=== PATIENT | male | born 1955 | race Caucasian/White ===

== ENCOUNTER 2021-02-26 12:45 | Emergency (ER) | payer BC ==
[2021-02-26] MEDS ORDERED: NA CHLORIDE 0.9% 1,000 ML ONE (13:32)
[2021-02-26] MEDS ORDERED: ASPIRIN 81 MG CHEWABLE TABLET ONE (13:32)
[2021-02-26 13:41] LABS: Protime INR 1.11
[2021-02-26 13:42] LABS: Absolute Lymphocytes (CBC) 2.1 K/uL (0.7-4.9); Basophils % 0.6 % (0-1.3); Hematocrit 50.5 % (39.6-49.0); Lymphocytes % 14.3 % (15.3-44.8); MPV 9.3 fL (7.6-11.3); RBC Red Blood Cell Count 5.14 M/uL (4.33-5.43)
[2021-02-26 13:50] LABS: ALT/SGPT 33 U/L (12-78); AST/SGOT 16 U/L (15-37); Albumin 4.2 g/dL (3.4-5.0); Alkaline Phosphatase 98 U/L (45-117); BUN Blood Urea Nitrogen 12 mg/dL (7-18); Bicarbonate 24 mmol/L (21-32); Bilirubin Direct 0.2 mg/dL (0-0.2); Bilirubin Total 0.8 mg/dL (0.2-1.0); Glucose Level 158 mg/dL (74-106); Lipase 38 U/L (73-393); Magnesium 1.9 mg/dL (1.8-2.4); NT PRO-BNP 42 pg/mL (<125); Protein, Total 7.9 g/dL (6.4-8.2); Sodium Level 142 mmol/L (136-145); Troponin (Emerg Dept Use Only) < 0.02 ng/mL (0.0-0.045)
--- NOTE | 2021-02-26 14:36 | ER ---
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 Now with chest pain, tightness and shaky. Denies HX of cardiac problems. Coronavirus screen: Client denies travel out of the [place] in the last 14 days. nausea, Client presents with at least one sign or symptom that may indicate coronavirus-19. Standard/surgical mask placed on the client. Provider contacted for isolation considerations. Ebola Screen: Patient negative for fever greater than or equal to 101.5 degrees Fahrenheit, and additional compatible Ebola Virus Disease symptoms Patient denies exposure to infectious person. Patient denies travel to an Ebola-affected area in the 21 days before illness onset. No symptoms or risks identified at this time. Initial Sepsis Screen: Does the patient meet any 2 criteria? No. Patient's initial sepsis screen is negative. Does the patient have a suspected source of infection? No. Patient's initial sepsis screen is negative. Risk Assessment: Do you want to hurt yourself or someone else? Patient reports no desire to harm self or others. Onset of symptoms was February 26, 2021. 12:48 Method Of Arrival: Wheelchair ca1 12:48 Acuity: IGOR 3 ca1 Triage Assessment: 12:59 Cardiovascular: Rhythm is sinus rhythm. ca1 Historical: - Allergies: 12:59 No Known Allergies; ca1 - PMHx: 12:59 Hypertension; Gastric Reflux; ca1 - PSHx: 12:59 Hernia repair; ca1 - Immunization history:: Client reports having NOT received the Covid vaccine. Pneumococcal vaccine is not up to date, Flu vaccine is not up to date. - Social history:: Smoking status: Patient/guardian denies using tobacco, the patient reports quitting approximately 30 years ago. - Family history:: not pertinent. Screenin:13 Abuse screen: Denies threats or abuse. Nutritional screening: No deficits noted. jd3 Tuberculosis screening: No symptoms or risk factors identified. Fall Risk Ambulatory Aid- None/Bed Rest/Nurse Assist (0 pts). Gait- Normal/Bed Rest/Wheelchair (0 pts) Mental Status- Oriented to own ability (0 pts). Total Rider Fall Scale indicates No Risk (0-24 pts). Assessment: 13:15 General: Appears in no apparent distress. comfortable, Behavior is cooperative, jd3 appropriate for age, agitated. Pain: Complains of pain in chest Pain does not radiate. Quality of pain is described as aching, pressure, Pain began gradually. Neuro: Level of Consciousness is awake, alert, obeys commands, Oriented to person, place, time, situation. Cardiovascular: Capillary refill < 3 seconds Patient's skin is warm and dry. Rhythm is regular. Respiratory: Airway is patent Respiratory effort is even, unlabored, Respiratory pattern is regular, symmetrical, Denies cough, shortness of breath. GI: No signs and/or symptoms were reported involving the gastrointestinal system. : No signs and/or symptoms were reported regarding the genitourinary system. EENT: No signs and/or symptoms were reported regarding the EENT system. Derm: Skin is intact, Skin is dry, Skin is normal, Skin temperature is warm. Musculoskeletal: Circulation, motion, and sensation intact. Range of motion: intact in all extremities. 14:12 Reassessment: Patient appears in no apparent distress at this time. Patient and/or jd3 family updated on plan of care and expected duration. Pain level reassessed. Patient is alert, oriented x 3, equal unlabored respirations, skin warm/dry/pink. Patient states feeling better. 15:15 Reassessment: Patient appears in no apparent distress at this time. Patient and/or jd3 family updated on plan of care and expected duration. Pain level reassessed. Patient is alert, oriented x 3, equal unlabored respirations, skin warm/dry/pink. Patient denies pain at this time. Patient states feeling better. 16:07 Reassessment: Patient appears in no apparent distress at this time. No changes from jd3 previously documented assessment. Patient and/or family updated on plan of care and expected duration. Pain level reassessed. Patient is alert, oriented x 3, equal unlabored respirations, skin warm/dry/pink. Patient states feeling better. 17:47 Reassessment: Patient appears in no apparent distress at this time. Patient and/or jd3 family updated on plan of care and expected duration. Pain level reassessed. Patient is alert, oriented x 3, equal unlabored respirations, skin warm/dry/pink. pt denies pain. pt decided to he does not want to stay in the hospital. provider at bedside discussing plan of care. even and steady gait upon discharge. denies pain or discomfort at this time. reported understanding of discharge instructions and fallow-up instructions. Patient denies pain at this time. Patient states feeling better. Vital Signs: 12:48 BP 148 / 99; Pulse 80; Resp 16 S; Temp 97.3(TE); Pulse Ox 100% on R/A; Weight 104.33 kg ca1 (R); Height 6 ft. 1 in. (185.42 cm) (R); 14:12 BP 123 / 78; Pulse 84; Resp 15 S; Pulse Ox 96% on R/A; jd3 16:07 BP 129 / 84; Pulse 82; Resp 18 S; Pulse Ox 97% on R/A; jd3 17:49 BP 133 / 82; Pulse 74; Resp 16 S; Pulse Ox 98% on R/A; jd3 12:48 Body Mass Index 30.34 (104.33 kg, 185.42 cm) ca1 NIH Stroke Scale Scores: 14:33 NIHSS Score: 0 carla ED Course: 12:46 Patient arrived in ED. ds1 12:50 Nguyễn iPnto MD is Attending Physician. carla 12:59 Triage completed. ca1 12:59 Arm band placed on right wrist. EKG completed in triage. Results shown to MD. ca1 13:01 Patient placed in an exam room, on a stretcher, on groundwater monitoring technician, on pulse oximetry. ca1 13:08 Norman Bonner, PHUONG is Primary Nurse. jd3 13:09 Inserted saline lock: 20 gauge in right antecubital area, using aseptic technique. jd3 Blood collected. Patient maintains SpO2 saturation greater than 95% on room air. 13:45 XRAY Chest (1 view) In Process Unspecified. EDMS 14:14 Patient has correct armband on for positive identification. Bed in low position. Call jd3 light in reach. Side rails up X2. Child being held by parent. environmental monitoring technician on. Pulse ox on. NIBP on. 14:20 ED physician to see patient. jd3 14:34 Dennis Read MD is Hospitalizing Provider. carla 15:07 CT Chest For PE Angio In Process Unspecified. EDMS 16:35 Troponin (Emerg Dept Use Only) Sent. jd3 17:36 Henok Lorenzana MD is Referral Physician. carla 17:49 No provider procedures requiring assistance completed. IV discontinued, intact, jd3 bleeding controlled, No redness/swelling at site. Pressure dressing applied. Administered Medications: 13:24 Drug: NS 0.9% 1000 ml Route: IV; Rate: 125 ml/hr; Site: right antecubital; jd3 17:51 Follow up: Response: No adverse reaction; IV Status: Order to discontinue infusion; jd3 Order to discontinue infusion, pt singed out AMA 13:24 Drug: Aspirin Chewable Tablet 162 mg Route: PO; jd3 14:20 Follow up: Response: No adverse reaction jd3 14:54 Drug: Lovenox (enoxaparin) 100 mg Route: Sub-Q; Site: abdomen; jd3 15:50 Follow up: Response: No adverse reaction jd3 14:55 Drug: Rocephin (cefTRIAXone) 1 grams Route: IV; Rate: per protocol; Site: right jd3 antecubital; 15:50 Follow up: Response: No adverse reaction; IV Status: Completed infusion jd3 14:55 Drug: Pepcid (famotidine) 20 mg Route: IVP; Site: right antecubital; jd3 15:50 Follow up: Response: No adverse reaction jd3 16:33 Drug: Thiamine 100 mg Route: IV; Rate: bolus; Site: right antecubital; jd3 17:30 Follow up: Response: No adverse reaction; IV Status: Completed infusion jd3 Outcome: 14:35 Decision to Hospitalize by Provider. carla 17:49 AMA AMA form signed jd3 17:49 Condition: stable 17:49 Discharge instructions given to patient, Instructed on discharge instructions, follow up and referral plans. Demonstrated understanding of instructions, follow-up care. 17:49 Patient left the ED. jd3 NIH Stroke Scale - NIH Stroke Score Date: 02/26/2021 Time: 14:33 Total Score = 0 1a. Level of Consciousness (LOC) - 0(Alert) 1b. Level of Consciousness (LOC) (Year \T\ Age) - 0(Both) 1c. LOC Commands (Open \T\ Closes Eyes/Director Gift) - 0(Both) 2. Best Gaze (Lateral Gaze Paresis) - 0(Normal) 3. Visual Field Loss - 0(No visual loss) 4. Facial Palsy - 0(Normal) 5a. Left Arm: Motor (10-second hold) - 0(No drift) 5b. Right Arm: Motor (10-second hold) - 0(No drift) 6a. Left Leg: Motor (5-second hold - always test supine) - 0(No drift) 6b. Right Leg: Motor (5-second hold - always test supine) - 0(No drift) 7. Limb Ataxia (finger/nose \T\ heel/kirkland - test with eyes open) - 0(Absent) 8. Sensory Loss (pinprick arms/legs/face) - 0(Normal) 9. Best Language: Aphasia (description/naming/reading) - 0(No aphasia) 10. Dysarthria (speech clarity - read or repeat words) - 0(Normal) 11. 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 Now with chest pain, tightness and shaky. ca1
--- NOTE | 2021-02-26 14:36 | EDPHYS ---
Physician Documentation [facility] Name: Selwyn Ricks Age: 65 yrs Sex: Male : 1955 Arrival Date: 02/26/2021 Time: 12:46 Bed 2 Private MD: ED Physician Nguyễn Pinto HPI: 02/26 14:30 This 65 yrs old Male presents to ER via Wheelchair with complaints of Chest carla Pain. 14:30 The patient or guardian reports chest pain that is located primarily in the substernal carla area, anterior chest wall, left. Onset: just prior to arrival, this morning. The pain does not radiate. Associated signs and symptoms: Pertinent positives: nausea. The chest pain is described as a pressure. Duration: The patient or guardian reports a single episode, that is now resolved. Modifying factors: The symptoms are alleviated by nothing. the symptoms are aggravated by nothing. Severity of pain: At its worst the pain was mild in the emergency department the pain has resolved. The patient has not experienced similar symptoms in the past. Historical: - Allergies: 12:59 No Known Allergies; ca1 - PMHx: 12:59 Hypertension; Gastric Reflux; ca1 - PSHx: 12:59 Hernia repair; ca1 - Immunization history:: Client reports having NOT received the Covid vaccine. Pneumococcal vaccine is not up to date, Flu vaccine is not up to date. - Social history:: Smoking status: Patient/guardian denies using tobacco, the patient reports quitting approximately 30 years ago. - Family history:: not pertinent. ROS: 14:30 Constitutional: Negative for fever, chills, and weight loss, Eyes: Negative for injury, carla pain, redness, and discharge, ENT: Negative for injury, pain, and discharge, Neck: Negative for injury, pain, and swelling, Respiratory: Negative for shortness of breath, cough, wheezing, and pleuritic chest pain, Back: Negative for injury and pain, : Negative for injury, bleeding, discharge, and swelling, MS/Extremity: Negative for injury and deformity, Skin: Negative for injury, rash, and discoloration, Neuro: Negative for headache, weakness, numbness, tingling, and seizure, Psych: Negative for depression, anxiety, suicide ideation, homicidal ideation, and hallucinations, Allergy/Immunology: Negative for hives, rash, and allergies, Endocrine: Negative for neck swelling, polydipsia, polyuria, polyphagia, and marked weight changes, Hematologic/Lymphatic: Negative for swollen nodes, abnormal bleeding, and unusual bruising. 14:30 Cardiovascular: Positive for chest pain. 14:30 Abdomen/GI: Positive for nausea. 14:30 Neuro: Positive for weakness. Exam: 14:33 Constitutional: This is a well developed, well nourished patient who is awake, alert, carla and in no acute distress. Head/Face: Normocephalic, atraumatic. Eyes: Pupils equal round and reactive to light, extra-ocular motions intact. Lids and lashes normal. Conjunctiva and sclera are non-icteric and not injected. Cornea within normal limits. Periorbital areas with no swelling, redness, or edema. ENT: Nares patent. No nasal discharge, no septal abnormalities noted. Tympanic membranes are normal and external auditory canals are clear. Oropharynx with no redness, swelling, or masses, exudates, or evidence of obstruction, uvula midline. Mucous membranes moist. Neck: Trachea midline, no thyromegaly or masses palpated, and no cervical lymphadenopathy. Supple, full range of motion without nuchal rigidity, or vertebral point tenderness. No Meningismus. Chest/axilla: Normal chest wall appearance and motion. Nontender with no deformity. No lesions are appreciated. Cardiovascular: Regular rate and rhythm with a normal S1 and S2. No gallops, murmurs, or rubs. Normal PMI, no JVD. No pulse deficits. Respiratory: Lungs have equal breath sounds bilaterally, clear to auscultation and percussion. No rales, rhonchi or wheezes noted. No increased work of breathing, no retractions or nasal flaring. Abdomen/GI: Soft, non-tender, with normal bowel sounds. No distension or tympany. No guarding or rebound. No evidence of tenderness throughout. Back: No spinal tenderness. No costovertebral tenderness. Full range of motion. Skin: Warm, dry with normal turgor. Normal color with no rashes, no lesions, and no evidence of cellulitis. MS/ Extremity: Pulses equal, no cyanosis. Neurovascular intact. Full, normal range of motion. Neuro: Awake and alert, GCS 15, oriented to person, place, time, and situation. Cranial nerves II-XII grossly intact. Motor strength 5/5 in all extremities. Sensory grossly intact. Cerebellar exam normal. Normal gait. Psych: Awake, alert, with orientation to person, place and time. Behavior, mood, and affect are within normal limits. 14:33 Musculoskeletal/extremity: DVT Exam: No signs of deep vein thrombosis. no pain, no swelling, no tenderness, negative Homans' sign noted on exam, no appreciated bluish discoloration, no erythema, no increased warmth. 14:40 ECG was reviewed by the Attending Physician. carla Vital Signs: 12:48 BP 148 / 99; Pulse 80; Resp 16 S; Temp 97.3(TE); Pulse Ox 100% on R/A; Weight 104.33 kg ca1 (R); Height 6 ft. 1 in. (185.42 cm) (R); 14:12 BP 123 / 78; Pulse 84; Resp 15 S; Pulse Ox 96% on R/A; jd3 16:07 BP 129 / 84; Pulse 82; Resp 18 S; Pulse Ox 97% on R/A; jd3 17:49 BP 133 / 82; Pulse 74; Resp 16 S; Pulse Ox 98% on R/A; jd3 12:48 Body Mass Index 30.34 (104.33 kg, 185.42 cm) ca1 NIH Stroke Scale Scores: 14:33 NIHSS Score: 0 carla MDM: 12:50 Patient medically screened. carla 14:37 Differential diagnosis: abnormal EKG, acute myocardial infarction, acute pericarditis, carla anxiety, coronary artery disease gastritis, gastroesophageal reflux disease (GERD), hiatal hernia, pancreatitis, pneumonia, pulmonary embolus, stable angina, unstable angina. HEART Score: History: Slightly Suspicious (0), ECG: Normal (0), Age: > 45 and < 65 years (1), Risk Factors: > or = 3 Risk factors for atherosclerotic disease (2), [Hypertension] [+ Family HX] [Obesity] Troponin: < or = 1 x Normal Limit (0), Total Score = 3. The patient was given aspirin in the Emergency Department. The patient's deep vein thrombosis risk score was calculated as follows: Total Score: 0. This patient was found to be at low risk for a deep vein thrombosis by using the Well's assessment criteria. The patient's pulmonary embolism risk score was calculated as follows: Total Score: 0-2 points. This patient was found to be at low risk for a pulmonary embolism by using the Well's assessment criteria. BLANK Risk Score: 1 - Three or more CAD risk factors, [Family Hx], [HTN], [Elevated Cholesterol], TOTAL SCORE = 1. Data reviewed: vital signs, nurses notes, lab test result(s), EKG, radiologic studies, CT scan, plain films. Data interpreted: lunchroom monitor: rate is 84 beats/min, rhythm is regular, Pulse oximetry: on room air is 96 %. Test interpretation: by ED physician or midlevel provider: ECG, plain radiologic studies. Counseling: I had a detailed discussion with the patient and/or guardian regarding: the historical points, exam findings, and any diagnostic results supporting the discharge/admit diagnosis, the presence of at least one elevated blood pressure reading (>120/80) during this emergency department visit, lab results, radiology results, the need for further work-up and treatment in the hospital. 02/26 12:56 Order name: Basic Metabolic Panel [facility] 02/26 12:56 Order name: CBC with Diff [facility] 02/26 12:56 Order name: LFT's [facility] 02/26 12:56 Order name: Magnesium [facility] 02/26 12:56 Order name: NT PRO-BNP; Complete Time: 14: [facility] 02/26 12:56 Order name: PT-INR; Complete Time: 14: [facility] 02/26 12:56 Order name: Troponin (emerg Dept Use Only); Complete Time: 14: [facility] 02/26 12:56 Order name: Lipase; Complete Time: 14: [facility] 02/26 12:57 Order name: Basic Metabolic Panel; Complete Time: 14: [facility] 02/26 12:57 Order name: CBC with Automated Diff; Complete Time: 14: [facility] 02/26 12:57 Order name: Liver (Hepatic) Function; Complete Time: 14: [facility] 02/26 12:57 Order name: Magnesium; Complete Time: 14: [facility] 02/26 14:21 Order name: SARS-COV-2 RT PCR; Complete Time: 16:10 [facility] 02/26 12:56 Order name: XRAY Chest (1 view); Complete Time: 16:[address] [facility] 02/26 12:56 Order name: EKG; Complete Time: 12:[address] [facility] 02/26 12:56 Order name: Cardiac monitoring; Complete Time: 13:[address] [facility] 02/26 12:56 Order name: EKG - Nurse/Tech; Complete Time: 13:[address] [facility] 02/26 14:27 Order name: Blood Culture Adult (2) [facility] 02/26 14:27 Order name: CT Chest For PE Angio; Complete Time: 16:[address] [facility] 02/26 14:28 Order name: Blood Culture [facility] 02/26 15:25 Order name: Urine Dipstick-Ancillary; Complete Time: 16:10 [facility] 02/26 16:21 Order name: Troponin (emerg Dept Use Only): NOW [facility] 02/26 16:21 Order name: Troponin (Emerg Dept Use Only); Complete Time: 17:16 [facility] 02/26 12:56 Order name: IV Saline Lock; Complete Time: 13:[address] [facility] 02/26 12:56 Order name: Labs collected and sent; Complete Time: 13:[address] [facility] 02/26 12:56 Order name: O2 Per Protocol; Complete Time: 13:[address] [facility] 02/26 12:56 Order name: O2 Sat Monitoring; Complete Time: 13:[address] [facility] EC:40 Rate is 78 beats/min. Rhythm is regular. QRS Roosevelt is Normal. ID interval is normal. QRS carla interval is normal. QT interval is normal. No Q waves. T waves are Normal. No ST changes noted. Clinical impression: NSR w/ Non-specific ST/T Changes and No evidence of ischemia. Interpreted by me. Reviewed by me. Administered Medications: 13:24 Drug: NS 0.9% 1000 ml Route: IV; Rate: 125 ml/hr; Site: right antecubital; jd3 17:51 Follow up: Response: No adverse reaction; IV Status: Order to discontinue infusion; jd3 Order to discontinue infusion, pt singed out AMA 13:24 Drug: Aspirin Chewable Tablet 162 mg Route: PO; jd3 14:20 Follow up: Response: No adverse reaction jd3 14:54 Drug: Lovenox (enoxaparin) 100 mg Route: Sub-Q; Site: abdomen; jd3 15:50 Follow up: Response: No adverse reaction jd3 14:55 Drug: Rocephin (cefTRIAXone) 1 grams Route: IV; Rate: per protocol; Site: right jd3 antecubital; 15:50 Follow up: Response: No adverse reaction; IV Status: Completed infusion jd3 14:55 Drug: Pepcid (famotidine) 20 mg Route: IVP; Site: right antecubital; jd3 15:50 Follow up: Response: No adverse reaction jd3 16:33 Drug: Thiamine 100 mg Route: IV; Rate: bolus; Site: right antecubital; jd3 17:30 Follow up: Response: No adverse reaction; IV Status: Completed infusion jd3 Disposition: 02/26/21 17:37 Patient has left against medical advice. Impression: Chest pain, unspecified, Essential (primary) hypertension, Alcohol abuse, uncomplicated, Elevated white blood cell count. - Patients states they are going to Home. - Condition is Fair. - Discharge Instructions: Nonspecific Chest Pain, Alcohol Use Disorder, Hypertension, Nonspecific Chest Pain, [id number], Hypertension, [id number], Alcohol Abuse and Nutrition, How to Take Your Blood Pressure, [id number], Aspirin and Your Heart, Managing Your Hypertension. Follow up: Private Physician; When: Upon discharge from the Emergency Department; Reason: Recheck today's complaints, Continuance of care, Re-evaluation by your physician. Follow up: Henok Lorenzana MD; When: Upon discharge from the Emergency Department; Reason: Recheck today's complaints, Re-evaluation by your physician. - Problem is new. - Symptoms have improved. NIH Stroke Scale - NIH Stroke Score Date: 02/26/2021 Time: 14:33 Total Score = 0 1a. Level of Consciousness (LOC) - 0(Alert) 1b. Level of Consciousness (LOC) (Year \T\ Age) - 0(Both) 1c. LOC Commands (Open \T\ Closes Eyes/Bag Machine Helper) - 0(Both) 2. Best Gaze (Lateral Gaze Paresis) - 0(Normal) 3. Visual Field Loss - 0(No visual loss) 4. Facial Palsy - 0(Normal) 5a. Left Arm: Motor (10-second hold) - 0(No drift) 5b. Right Arm: Motor (10-second hold) - 0(No drift) 6a. Left Leg: Motor (5-second hold - always test supine) - 0(No drift) 6b. Right Leg: Motor (5-second hold - always test supine) - 0(No drift) 7. Limb Ataxia (finger/nose \T\ heel/kirkland - test with eyes open) - 0(Absent) 8. Sensory Loss (pinprick arms/legs/face) - 0(Normal) 9. Best Language: Aphasia (description/naming/reading) - 0(No aphasia) 10. Dysarthria (speech clarity - read or repeat words) - 0(Normal) 11. Extinction and Inattention (visual/tactile/auditory/spatial/personal) - 0(No abnormality) Initials: carla Signatures: Dispatcher [employer] [facility] Nguyễn Pinto MD MD cha Attema, Lee, FINAL CLEANER-C FINAL CLEANER-Cla1 Norman Bonner RN RN jd3 Acob, Shira RN RN ca1 Corrections: (The following items were deleted from the chart) 13:41 12:57 CORONAVIRUS+MR.LAB.BRZ ordered. [facility] 17:36 14:35 Hospitalization Ordered by Dennis Read MD for Observation. Preliminary carla diagnosis is Chest pain, unspecified; Weakness; Nausea; Elevated white blood cell count. Bed requested for Telemetry/MedSurg (observation). Status is Observation. Condition is Stable. Problem is new. Symptoms have improved. carla 17:49 17:37 02/26/2021 17:37 Patients has left against medical advice. Impression: jd3 Chest pain, unspecified; Essential (primary) hypertension; Alcohol abuse, uncomplicated; Elevated white blood cell count. Patient states they are going to Home. Condition is Fair. Follow up: Private Physician; When: Upon discharge from the Emergency Department; Reason: Recheck today's complaints, Continuance of care, Re-evaluation by your physician. Follow up: Henok Lorenzana; When: Upon discharge from the Emergency Department; Reason: Recheck today's complaints, Re-evaluation by your physician. Problem is new. Symptoms have improved. carla
[2021-02-26] MEDS ORDERED: CEFTRIAXONE/SWI 1gm 1 GM/10 ML SYR ONE (15:04)
[2021-02-26] MEDS ORDERED: FAMOTIDINE 20 MG/2 ML VIAL IV ONE (15:04)
[2021-02-26] MEDS ORDERED: ENOXAPARIN 100 MG/ML SYR SQ ONE (15:04)
--- NOTE | 2021-02-26 15:14 | RAD REPORT ---
EXAM DESCRIPTION: Ana Paula Single View02/26/2021 1:45 pm CLINICAL HISTORY: Chest pain COMPARISON: none FINDINGS: Left basilar opacity probably mediastinal fat. The lungs appear clear of acute infiltrate. The heart is normal size
--- NOTE | 2021-02-26 15:19 | RAD REPORT ---
EXAM DESCRIPTION: CT - Chest For Pe Angio - 02/26/2021 3:07 pm CLINICAL HISTORY: Chest pain COMPARISON: None. TECHNIQUE: Dynamically enhanced axial 3 mm thick images of the chest were obtained during administra tion of <100> mL Isovue 370 IV contrast. Coronal and oblique reconstruction images were generated and reviewed. Exam utilizes a protocol for optimal evaluation of pulmonary arterial tree. Maximum intensity projections 3D imaging was utilized All CT scans are performed using dose optimization technique as appropriate and may include automated exposure control or mA/KV adjustment according to patient size. FINDINGS: A pulmonary embolus is not seen. A thoracic aortic aneurysm is not noted. A pleural effusion is not seen. A pericardial effusion is not seen. A lung consolidation is not present. Small hiatal hernia IMPRESSION: Negative for a pulmonary embolism.
[2021-02-26 15:25] LABS: Urine Blood Negative (Negative); Urine Glucose Negative (Negative); Urine Protein Negative (Negative); Urine pH 6.5 (5.0-7.0)
[2021-02-26] MEDS ORDERED: THIAMINE 200 MG/2 ML INJ ONE (16:45)
--- NOTE | 2021-02-26 17:48 | P.CNS ---
Date of Consult: 02/26/21 Reason for Consult: chest pain Requesting Physician: Nguyễn Pinto Primary Care Provider: Rehan Chief Complaint: fatigue and chest pain History of Present Illness: This is a 65 y/o M w/ HTN who presents to the ER after sudden onset of fatigue and chest pain. He woke up feeling fine and started to feel hot when he was working. He reports that he started to sweat profusely and felt weak. He went home to rest and did not feel any better. He started feeling L sided, non- radiating chest tightness/pressure x 1 hr. He states the chest discomfort feels similar to having gas and came to the ER bc he was more concerned w/ feeling weak. He had 1 episode of nausea this morning which he says is usual after taking his morning medications. He denies any fevers, cough, wheezing, vomiting, abdominal pain, or palpitations. He reports that he drinks beer regularly and drank more than usual last night. He had a few cups of coffee this morning. He barely drank any water last night or this morning. He states his HTN is well controlled and has regular check ups with his PCP. His last visit was a few weeks ago and everything was normal. Denies any cardiac family hx. Upon arrival to the ER, he received aspirin, ceftriaxone, enoxaparin, famotidine, thiamine, and IV NS. Pt reports feeling much better since receiving IV fluids. Home medications list reviewed: Yes - Past Medical/Surgical History Diabetic: No Past Medical History: Reviewed- Non-Contributory (htn, gerd) Past Surgical History: Reviewed- Non-Contributory (amlodipine, losartan, omeprazole, aspirin prn pain) Psychosocial/ Personal History: lives at home with - Family History Mother Medical History: Hypertension - Social History Smoking Status: Former smoker <Yovana Moran - Last Filed: 02/26/21 17:49> - Social History Alcohol use: Yes Caffeine use: Yes Place of Residence: Home <Dennis Read - Last Filed: 02/26/21 21:32> Review of Systems General: Unremarkable Respiratory: As per HPI Cardiovascular: As per HPI <Yovana Moran - Last Filed: 02/26/21 17:49> Physical Examination General: Alert, In no apparent distress, Oriented x3 HEENT: Atraumatic, Normocephalic Neck: Supple Respiratory: Clear to auscultation bilaterally, Normal air movement Cardiovascular: No edema, Regular rate/rhythm Gastrointestinal: Normal bowel sounds, Soft and benign, Non-distended Musculoskeletal: No swelling Neurological: Normal speech Laboratory Data (last 24 hrs) 02/26/21 13:06: PT 12.8 H, INR 1.11 02/26/21 13:06: WBC 14.90 H, Hgb 17.0, Hct 50.5 H, Plt Count 264 02/26/21 13:06: Sodium 142, Potassium 4.0, BUN 12, Creatinine 1.06, Glucose 158 H, Magnesium 1.9, Total Bilirubin 0.8, AST 16, ALT 33, Alkaline Phosphatase 98, Lipase 38 L <Yovana Moran - Last Filed: 02/26/21 17:49> Temp Pulse Resp BP Pulse Ox 97.3 F 74 16 133/82 02/26/21 12:48 02/26/21 17:49 02/26/21 17:49 02/26/21 17:49 HEENT: EOMI, Sclerae nonicteric Cardiovascular: No murmurs Capillary refill: <2 Seconds Gastrointestinal: No tenderness Integumentary: No rashes Neurological: Normal strength at 5/5 x4 extr, Normal affect Laboratory Data (last 24 hrs) 02/26/21 13:06: PT 12.8 H, INR 1.11 02/26/21 13:06: WBC 14.90 H, Hgb 17.0, Hct 50.5 H, Plt Count 264 02/26/21 13:06: Sodium 142, Potassium 4.0, BUN 12, Creatinine 1.06, Glucose 158 H, Magnesium 1.9, Total Bilirubin 0.8, AST 16, ALT 33, Alkaline Phosphatase 98, Lipase 38 L <Dennis Read - Last Filed: 02/26/21 21:32> Conclusions/Impression: problem list: chest pain fatigue leukocytosis -HEART score 2 -troponins negative x2 -EKG unconcerning for STEMI/NSTEMI -CXR and CTA of chest normal -pt feeling greatly improved since IV administration, pts fatigue and weakness likely due to dehydration -confirmed w/ pt several times that his feeling of "chest pain" was similar to other episodes of gas -pt appears stable and does not need admission at this time Time Spent Managing Pts care (In Minutes): 50 <Yovana Moran - Last Filed: 02/26/21 17:49> Conclusions/Impression: Patient with atypical chest discomfort. Reports feeling overheated and weak all of a sudden at work. [place] as though he was "having a heat stroke" and had left lower chest pressure, which he describes feels like he has gas. Labs, imaging reviewed. Chest discomfort resolved prior to any medication given, and rest of symptoms resolved with IVF hydration. Patient appears to have been dehydrated and overheated after a night of heavier than normal alcohol use fol lowed by caffeine usage this morning. EKG without acute ischemic changes, noted normal / upright U waves. As noted above, HEART score 2, pt overall with low risk for ACS and atypical presentation. Currently reports feeling back to his normal self and wants to go home. Discussed we could admit and trend troponin x3, however unable to perform echo, stress test, or cath for several days due to the holiday weekend. He states he would have reliable follow up in a few days and would call to follow up with a Resource Room Teacher this week. Given his lower risk profile and resolution of symptoms with IVF, I think it is reasonable to repeat troponin and if negative, discharging the patient home. He expressed understanding of risk of leaving earlier / against medical advice. Leukocytosis possibly reactive vs due to dehydration. Patient is afebrile, negative procalcitonin, negative CXR and CTA. No signs/symptoms of infection from HPI/exam. Time Spent Managing Pts care (In Minutes): 60 <Dennis Read - Last Filed: 02/26/21 21:32>
[2021-02-26 18:00] VITALS: TEMP 97.3
[2021-02-26 18:06] VITALS: BP 133/82; O2SAT 98
--- NOTE | 2021-03-02 12:08 | EKG ---
Test Date: 2021-02-26 Test Time: 12:53:18 Manufacturing Test Technician: JACOBO MEASUREMENT RESULTS: Intervals: Rate: 78 ME: 144 QRSD: 94 QT: 410 QTc: 467 [place]: P: ME: 144 QRS: 117 T: 34 INTERPRETIVE STATEMENTS: Normal sinus rhythm Right axis deviation Abnormal ECG No previous ECG available for comparison Electronically Signed On 03-02-21 11:55:27 CDT by Henok Lorenzana
== END 2021-02-26 17:49 | disposition left against medical advice (07) ==
LOC: ER 12:45
DX: R07.9 Chest pain, unspecified (principal); I10 Essential (primary) hypertension; F10.10 Alcohol abuse, uncomplicated; D72.829 Elevated white blood cell count, unspecified; K21.9 Gastro-esophageal reflux disease without esophagitis; Z20.822 Contact with and (suspected) exposure to COVID-19; Z87.891 Personal history of nicotine dependence
CPT/HCPCS: 96365; 96367; 96361; 87040 ×2; 85025; 80048; 36415; 83735; 85610; 80076; 81003; 84484 ×2; 83690; 83880; 71275; 71045; 96375; 96372; 99285; U0003; Q9967; J3411; J1650; J0696; J7030; 93005